=== PATIENT | female | born 1935 | race Caucasian/White ===

== ENCOUNTER 2018-05-25 23:42 | Emergency (ER) | payer MEDICARE, OTHER ==
--- NOTE | 2018-05-26 01:28 | EDM.PDOC ---
ED HPI GENERAL MEDICAL PROBLEM - General Chief Complaint: Gastrointestinal Problem Stated Complaint: UNABLE TO SWALLOW Time Seen by Provider: 05/26/18 00:25 Source of Information: Reports: Patient, Family History Limitations: Reports: No Limitations - History of Present Illness INITIAL COMMENTS - FREE TEXT/NARRATIVE: pt ate some turkey tenderloin about 3 thirty and she ate it too fast and it got csught in her esophagus. She has been spitting out her saliva and anything she tried to drink . After arrival here she was given a coke and this did go down. She does have the senstion of irritation or that something is there. Onset: Today, Sudden Duration: Hour(s): Location: Reports: Chest Associated Symptoms: Reports: Other (pt is unable to swallow. ) - Related Data Allergies Allergy/AdvReac Type Severity Reaction Status Date / Time latex Allergy Rash Verified 05/26/18 00:31 morphine Allergy Hives Verified 05/26/18 00:31 Past Medical History HEENT History: Reports: Cataract Cardiovascular History: Reports: High Cholesterol, Hypertension Respiratory History: Reports: Sleep Apnea Gastrointestinal History: Reports: GERD [employer] History: Reports: Psychiatric History: Reports: Depression Endocrine/Metabolic History: Reports: Diabetes, Type II, Obesity/BMI 30+ - Past Surgical History HEENT Surgical History: Reports: Cataract Surgery GI Surgical History: Reports: Cholecystectomy, Colonoscopy, Hernia, Abdominal Female Surgical History: Reports: Section Dermatological Surgical History: Reports: Skin Biopsy Social & Family History - Tobacco Use Smoking Status *Q: Never Smoker - Caffeine Use Caffeine Use: Reports: None - Recreational Drug Use Recreational Drug Use: No ED ROS GENERAL - Review of Systems Review Of Systems: See Below Constitutional: Reports: No Symptoms HEENT: Reports: No Symptoms Respiratory: Reports: No Symptoms Cardiovascular: Reports: No Symptoms Endocrine: Reports: No Symptoms GI/Abdominal: Reports: Other (pt is spitting up anything she is trying to drink) : Reports: No Symptoms Musculoskeletal: Reports: No Symptoms Skin: Reports: No Symptoms ED EXAM, GI/ABD - Physical Exam Exam: See Below Text/Narrative:: pt arrived with a history of getting some turkey caught in her espophagus and then not being able to drink anything or get her saliva down since three thirty this afternoon. Exam Limited By: No Limitations General Appearance: Alert, Mild Distress Ears: Normal TMs Nose: Normal Inspection Throat/Mouth: Normal Inspection Head: Atraumatic Neck: Normal Inspection Respiratory/Chest: No Respiratory Distress Cardiovascular: Regular Rate, Rhythm, Systolic Murmur GI/Abdominal Exam: Soft, Non-Tender (Female) Exam: Deferred Rectal (Female) Exam: Deferred Back Exam: Normal Inspection Extremities: Normal Inspection Neurological: Alert, Oriented, Normal Cognition Course - Vital Signs Last Recorded V/S: Last Vital Signs Temp 36.0 C 05/26/18 00:40 Pulse 66 05/26/18 00:40 Resp 17 05/26/18 00:40 BP 182/68 H 05/26/18 00:40 Pulse Ox 90 L 05/26/18 00:40 - Re-Assessments/Exams Free Text/Narrative Re-Assessment/Exam: 05/26/18 01:49 pt drank a coke and a bottle of water and is doing ok with that. Departure - Departure Time of Disposition: 01:50 Disposition: Home, Self-Care 01 Condition: Fair Clinical Impression: Foreign body in esophagus - Discharge Information Referrals: PCP,None [Primary Care Provider] - Forms: ED Department Discharge Care Plan Goals: push fluids slowly. stick with soft foods for the next 24 hours, rtc if problems.
== END 2018-05-26 02:01 | disposition home or self-care (01) ==
LOC: JP.ED 23:42
DX: T18.128A Food in esophagus causing other injury, initial encounter (principal); I10 Essential (primary) hypertension; E11.9 Type 2 diabetes mellitus without complications; E66.9 Obesity, unspecified; Z91.040 Latex allergy status; Z88.5 Allergy status to narcotic agent
CPT/HCPCS: 99284